=== PATIENT | male | born 1965 | race Caucasian/White ===

== ENCOUNTER 2022-07-18 19:59 | Emergency (ER) | payer BC ==
[~2022-07-18] VITALS: Ht 182.9 cm; Wt 89.4 kg
[2022-07-18 20:19] VITALS: BP_SYST 113
--- NOTE | 2022-07-18 21:02 | NUR ---
Pt brought by self, A&Ox4, pt presents to ER with cough and congestion x 2 days, skin pink and warm, cap refill <3, VSS, will cont to monitor.
--- NOTE | 2022-07-18 21:15 | NUR ---
Dr Alejandro evaluating patients in the triage room
[2022-07-18] MEDS ORDERED: IBUP-1971 PO (21:39)
[2022-07-18] MEDS ORDERED: PSEU30TA36 PO (21:39)
[2022-07-18] MEDS ORDERED: OSEL75CA PO (21:57)
[2022-07-18 22:09] VITALS: BP_SYST 113
--- NOTE | 2022-07-18 22:10 | NUR ---
Patient given written and verbal discharge instructions and verbalizes understanding. ER MD discussed with patient the results and treatment provided. Patient in stable condition. ID arm band removed. Rx of Gino Huber Sudafed given. Patient educated on pain management and to follow up with PMD. Pain Scale 2/10. Opportunity for questions provided and answered. Medication side effect fact sheet provided.
== END 2022-07-18 22:09 | disposition home or self-care (01) ==
LOC: SED 19:59
DX: J40 Bronchitis, not specified as acute or chronic (principal); R05.9 Cough, unspecified; R09.81 Nasal congestion; R50.9 Fever, unspecified; Z79.899 Other long term (current) drug therapy; Z20.822 Contact with and (suspected) exposure to COVID-19
CPT/HCPCS: 36415; 71045; 99284